=== PATIENT | male | born 1935 | race Caucasian/White ===

== ENCOUNTER 2017-08-23 18:50 | Inpatient (IN) | payer BC, OTHER ==
--- NOTE | 2017-08-23 19:50 | PDOC ---
Attending Attestation - Resident Resident Name: Flaca Malone - ED Attending Attestation I have performed the following: I have examined & evaluated the patient, The case was reviewed & discussed with the resident, I agree w/resident's findings & plan - HPI HPI: 08/23/17 23:57 Pt was sweeping the steps of his front porch and fell and injured his right face when he fell. He went to [facility] ER with the syncope and he had head CT was worked up and released. He went home and had another syncopal episode, and he came here. CT head and facial bones normal; Right hip and femur normal, and labs normal. Pt is on coumadin and his INR is 4.0 - Physicial Exam PE: 08/24/17 00:02 Neuro exam is normal; Pt is A+Ox3; Agree with resident exam. - Medical Decision Making 08/23/17 23:32 Patient Name: RAJEEV ARNOLD THIS IS A PRELIMINARY REPORT FROM [facility]AGING PHYSICAL MEDICINE PHYSICIAN DATE OF SERVICE: 2017-08-23 21:12:45 IMAGES: [id number] EXAM: CT MAXILLOFACIAL HISTORY: Right-sided raccoon eye COMPARISON: None. FINDINGS: Negative for orbital or facial fracture. Globes and orbits are intact. THIS DOCUMENT HAS BEEN ELECTRONICALLY SIGNED 08/23/17 23:32 Patient Name: RAJEEV ARNOLD THIS IS A PRELIMINARY REPORT FROM [facility]YSICAL MEDICINE PHYSICIAN DATE OF SERVICE: 2017-08-23 21:09:24 IMAGES: 134 EXAM: CT HEAD HISTORY: Syncope COMPARISON: None. FINDINGS: Age-appropriate involutional changes. No hemorrhage. No mass. No detectable acute infarct. Mild chronic microvascular changes in the cerebral white matter. Osseous structures are intact. THIS DOCUMENT HAS BEEN ELECTRONICALLY SIGNED 08/23/17 23:33 Pt has an elevated INR 4.1. Pt will be admitted to Dr. Sepulveda for syncope. Hip and Femur XRAYs are normal 08/24/17 00:05 Pt will be admitted to tele to Dr. Sepulveda 08/24/17 07:06 Pt was found at bedside on ground. We decided to do a CTA to eval brain: Patient Name: RAJEEV ARNOLD THIS IS A PRELIMINARY REPORT FROM [facility] PHYSICAL MEDICINE PHYSICIAN DATE OF SERVICE: 2017-08-24 03:33:34 IMAGES: [id number] EXAM: CT BRAIN WITHOUT CONTRAST AND CTA HEAD HISTORY: Rule out aneurysm or CVA COMPARISON: CT brain dated 08/23/18 FINDINGS: CT brain:The ventricular system is midline and nondilated. The sulcal pattern is normal for the patient's age. The mild chronic small vessel ischemic changes. There is no bleed, mass, extra-axial fluid collection or mass effect. No skull fracture or skull lesion is identified. The visualized paranasal sinuses and mastoid air cells are clear. CT angiogram brain: The right left anterior, middle and posterior cerebral arteries are normal without clot, occlusion, high-grade stenosis or discrete aneurysm formation. There is a partial origin of the left posterior cerebral artery. The distal right and left cerebral arteries are normal. The distal internal carotid ovaries are normal. There are no areas of abnormally increased or decreased enhancement are IMPRESSION: No acute intracranial pathology. Normal CTA of the brain THIS DOCUMENT HAS BEEN ELECTRONICALLY SIGNED
[2017-08-23] MEDS ORDERED: SODIUM CHLORIDE 0.9% 500 ML INFUS.BAG IV ONE (19:57)
--- NOTE | 2017-08-23 20:09 | PDOC ---
History of Present Illness - General Chief Complaint: Syncope/Near Syncope Stated Complaint: SYNCOPE Time Seen by Provider: 08/23/17 19:21 History Source: Patient Exam Limitations: No Limitations - History of Present Illness Initial Comments: This is an 82 YOM with h/o A-fib and TIA (on coumadin and ASA 81mg daily) who is BIBA for syncope with fall from chair, after previously being seen at [facility] ED for a syncopal episode with GLF earlier this afternoon. He describes the first episode today: he was sweeping the stairs outside his house when he became dizzy and the next thing he remembers is waking up on the ground. He awoke with a right black eye and right distal thigh pain which were both new, and was seen at [facility] ED where he had a head CT, an EKG, and blood work. He notes that everything was normal except for his INR which was about 3.4. He was discharged home and was walking up the stairs just after returning to his home when he became dizzy (room spinning) and SOB, sat down in a chair, and the next thing he remembers is waking up on the floor in his home. 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 He notes some recent increased fatigue and non-productive cough for the past week or two, but no current or recent numbness, tingling, focal weakness, headache, vision changes, hearing changes, trouble walking/talking/swallowing/thinking, palpitations, chest pain, abdominal pain, nausea, vomiting, diarrhea, constipation, fever, chills, or other symptoms. The only dizziness or SOB he has experienced recently was fleeting during todays episodes, and he has none currently. Past History - Past Medical History Allergies/Adverse Reactions: Allergies Allergy/AdvReac Type Severity Reaction Status Date / Time No Known Allergies Allergy Verified 08/23/17 19:20 Home Medications: Ambulatory Orders Lansoprazole [Prevacid] 30 mg PO DAILY 08/23/17 Ramipril [Altace] 5 mg PO DAILY 08/23/17 Sotalol HCl [Sotalol] 80 mg PO DAILY 08/23/17 Warfarin Sodium [Coumadin] 2.5 mg PO DAILY 08/23/17 Cardiac Disorders: Yes (afib) COPD: No HTN: Yes - Immunization History Td Vaccination: Yes Immunization Up to Date: Yes - Suicide/Smoking/Psychosocial Hx Smoking History: Never smoked Have you smoked in the past 12 months: No Information on smoking cessation initiated: No Hx Alcohol Use: No Drug/Substance Use Hx: No Substance Use Type: None Review of Systems - Review of Systems Constitutional: Yes: Other (tiredness). No: Chills, Fever, Unexplained wgt Loss HEENTM: No: Nose Congestion, Throat Pain Respiratory: Yes: Cough, Shortness of Breath (resolved) Cardiac (ROS): No: Chest Pain, Palpitations ABD/GI: No: Constipated, Diarrhea, Nausea, Vomiting : No: Burning, Dysuria Musculoskeletal: Yes: Other (right thigh pain). No: Back Pain, Neck Pain Integumentary: No: Bruising, Rash Neurological: Yes: Dizziness (resolved). No: Headache, Numbness, Tingling, Weakness Endocrine: No: Unexplained Weight Gain, Unexplained Weight Loss *Physical Exam - Vital Signs Last Vital Signs Temp Pulse Resp BP Pulse Ox 97.3 F L 74 18 115/74 96 08/23/17 19:16 08/23/17 19:16 08/23/17 19:16 08/23/17 19:16 08/23/17 19:16 - Physical Exam General Appearance: Yes: Nourished, Appropriately Dressed, Other (very pleasant elderly male accompanied at bedside by supportive , head wrapped in kerlix, large obvious right raccoon eye, answering questions and conversing appropriately). No: Apparent Distress HEENT: positive: EOMI, YULIANA, Normal Voice, Hearing Grossly Normal, Other (right raccoon eye, no mcintosh sign, no nasal septal hematoma, no obvious CSF rhinorrhea or otorrhea left TM without hemotympanum, right TM not visualized d/ t cerumen impaction). negative: Scleral Icterus (R), Scleral Icterus (L), Nasal Congestion Neck: positive: Trachea midline, Supple. negative: Tender, Rigid Respiratory/Chest: positive: Lungs Clear, Normal Breath Sounds. negative: Respiratory Distress, Crackles, Rhonchi, Stridor, Wheezing Cardiovascular: positive: Regular Rhythm, Regular Rate. negative: Edema, Murmur Gastrointestinal/Abdominal: positive: Normal Bowel Sounds, Soft. negative: Tender, Organomegaly, Pulsatile Mass, Guarding Musculoskeletal: positive: Normal Inspection. negative: Decreased Range of Motion, Vertebral Tenderness Extremity: positive: Normal Capillary Refill, Normal Inspection, Normal Range of Motion, Other (right lateral distal thigh tenderness extending to just superior to the right lateral knee). negative: Tender, Cyanosis Integumentary: positive: Normal Color, Dry, Warm, Other (scattered abrasions and superficial skin avulsions to right forehead and right amish). 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 negative: Numbness, Confused, Disoriented ED Treatment Course - LABORATORY CBC & Chemistry Diagram: 08/23/17 20:26 08/23/17 20:26 - ADDITIONAL ORDERS Additional order review: Laboratory Results 08/23/17 08/23/17 08/23/17 21:00 20:26 20:26 PT with INR 46.30 H INR 4.10 H* PTT (Actin FS) 50.4 H Sodium Potassium Chloride Carbon Dioxide Anion Gap BUN Creatinine Creat Clearance w eGFR Random Glucose Calcium Total Bilirubin AST ALT Alkaline Phosphatase Creatine Kinase Troponin I B-Natriuretic Peptide 433.46 Total Protein Albumin TSH 0.70 08/23/17 20:26 PT with INR INR PTT (Actin FS) Sodium 139 Potassium 4.3 Chloride 107 Carbon Dioxide 24 Anion Gap 8 BUN 17 Creatinine 0.8 Creat Clearance w eGFR > 60 Random Glucose 124 H Calcium 8.2 L Total Bilirubin 0.5 AST 28 ALT 28 Alkaline Phosphatase 69 Creatine Kinase 129 Troponin I < 0.02 B-Natriuretic Peptide Total Protein 6.6 Albumin 3.6 TSH 08/23/17 20:26 RBC 4.59 MCV 80.9 MCHC 32.5 RDW 17.0 H MPV 9.8 Neutrophils % 78.2 Lymphocytes % 11.6 Monocytes % 8.4 Eosinophils % 1.1 Basophils % 0.7 - Medications Given in the ED: ED Medications Discontinued Medications Generic Name Dose Route Start Last Admin Trade Name Freq PRN Reason Stop Dose Admin Meclizine HCl 50 mg 08/24/17 00:49 08/24/17 00:55 Antivert - PO 08/24/17 00:50 Not Given ONCE ONE Sodium Chloride 500 ml 08/23/17 19:57 08/23/17 20:31 Normal Saline - IV 08/23/17 19:58 500 ml ONCE ONE Administration Medical Decision Making - Medical Decision Making 82 YOM with h/o A-fib and TIA on coumadin and ASA, who p/w two syncopal episodes today. Large right raccoon eye, right [id number] dysmetria, right forehead and amish abrasions/avulsions. VS within normal limits initially but on the monitor he is observed to dip to low 50s on HR. DDX IBNLT critical aortic stenosis, arrhythmia (i.e. high degree AV block), CVA/ TIA, orthostasis, ACS, UTI, PNA, PE, etc. Ordered is CBCD, CMP, PT/INR, cardiac panel, EKG, CXR, UA cx, CT head/facial bones. 08/23/17 20:57 INR is 4.10, WBC is 12.7. Negative head, facial bone, and chest CT's, negative femur XR. Patient is admitted to Dr. Sepulveda (PCP) who requests Dr. Medina for neuro consultation. 08/24/17 03:04 Patient found on the floor in Holding room by electronics repair technician. Incident report being completed for fall within the department. Patient himself denies having fallen and states that he was urinating when he became dizzy. States he was only leaning against the bed and adamantly denies having fallen or even being on floor. Patient states the dizziness he was experiencing just now is the same as the two syncopal episodes today. Head CTA ordered (Head CT is required by incident report protocol, so CTA protocol is added). Page is sent to neuro on-call to notify them of continued dizziness, concern for CVA. *DC/Admit/Observation/Transfer Diagnosis at time of Disposition: Supratherapeutic INR Syncope Qualifiers: Syncope type: unspecified Qualified Code(s): R55 - Syncope and collapse Head injury due to trauma Qualifiers: Encounter type: initial encounter Qualified Code(s): S09.90XA - Unspecified injury of head, initial encounter - Discharge Dispostion Condition at time of disposition: Guarded Admit: Yes - Referrals - Patient Instructions - Post Discharge Activity
[2017-08-23 20:33] LABS: BASOPHIL 0.7 % (0-2.0); EOSINOPHIL 1.1 % (0-4.5); MCH 26.3 pg (25.7-33.7); MCHC 32.5 g/dl (32.0-35.9); MEAN CELL VOLUME 80.9 fl (80-96); MEAN PLT VOLUME 9.8 fl (7.5-11.1); NEUTROPHILS 78.2 % (42.8-82.8); PLATELET COUNT 210 K/MM3 (134-434); WHITE BLOOD COUNT 12.7 K/mm3 (4.0-10.0)
[2017-08-23 20:49] LABS: PROTHROMBIN TIME (PATIENT) 46.3 SEC (9.98-11.88)
[2017-08-23 20:55] LABS: INR 4.1 (0.82-1.09)
[2017-08-23 20:59] LABS: ALBUMIN 3.6 g/dl (3.4-5.0); ANION GAP 8 (8-16); BILIRUBIN,TOTAL 0.5 mg/dL (0.2-1.0); CALCIUM 8.2 mg/dL (8.5-10.1); CO2 24 mmol/L (21-32); CPK 129 IU/L (39-308); CREATININE 0.8 mg/dL (0.7-1.3); GLUCOSE,RANDOM 124 mg/dL (74-106); SGOT/AST 28 U/L (15-37); SGPT/ALT 28 U/L (12-78); TOT PROT 6.6 g/dl (6.4-8.2)
[2017-08-23 21:01] LABS: ALK PHOS 69 U/L (45-117); TROPONIN I < 0.02 ng/ml (0.00-0.05)
[2017-08-23 21:31] LABS: THYROID STIMULATING HORMONE 0.7 uIU/ml (0.358-3.74)
[2017-08-24] MEDS ORDERED: MECLIZINE HCL 25 MG TABLET (FP) PO ONE (00:49)
[2017-08-24] MEDS ORDERED: MECLIZINE HCL 25 MG TABLET (FP) ONE (00:51)
--- NOTE | 2017-08-24 09:56 | CON.NEURO ---
Consult - History of Present Illness History of Present Illness: 82 YOM with h/o A-fib and TIA (on coumadin and ASA 81mg daily) who is BIBA for syncope with fall from chair, after previously being seen at [facility] ED for a syncopal episode. He describes the first episode on 08/23/17 - he was sweeping the stairs outside his house when he became dizzy and the next thing he remembers is waking up on the ground. He awoke with a right black eye and right distal thigh pain which were both new, and was seen at [facility] ED where he had a head CT, an EKG, and blood work. He notes that everything was normal except for his INR which was about 3.4. He was discharged home and was walking up the stairs just after returning to his home when he became dizzy ( room spinning) and SOB, sat down in a chair, and the next thing he remembers is waking up on the floor in his home. present for this event--no twtitching, BB incontinence or tongue biting. 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 INR here 4.10. feels ever since his TIA 12/12--'not right" . no HX of seizures. another event of dizziness while in ER- CT HD and CTA (-) [id number] CT/BRAIN CTA Rule out aneurysm. History of stroke. Patient fell again. CT angiogram scan of the brain without intravenous contrast followed with a CT angiogram of the brain Coronal and sagittal reformatted images were submitted. The precontrast examination, there remains mild to moderate volume loss, ventricular dilatation and periventricular chronic microvascular ischemic changes. No mass lesion, gross acute infarct or intracranial hemorrhage are identified. The calvarium is intact. Faint calcification of the cavernous carotid arteries are present. Mild deviation of the nasal septum to the right. Visualized paranasal sinuses and mastoid air cells are well aerated. A post intravenous CT angiogram of the brain was performed. In the posterior circulation, the distal vertebral arteries, vertebrobasilar junction, basilar artery and its bifurcation appear unremarkable . Both posterior and superior cerebellar arteries appear unremarkable. A left posterior communicating artery is present. Tortuous/looping at the junction of the right anterior cerebral artery and anterior communicating artery. In the anterior circulation, the distal internal carotid artery and its bifurcation appears unremarkable, bilaterally without evidence of focal stenosis or an aneurysm. IMPRESSION: No gross focal stenosis, aneurysm, major artery cutoff or vascular malformation is seen in the central intracranial arterial circulation. A preliminary report was forwarded by the [employer] service, - History Source History Provided By: Patient, Medical Record - Alcohol/Substance Use Hx Alcohol Use: No - Smoking History Smoking history: Never smoked Have you smoked in the past 12 months: No Home Medications - Allergies Allergies/Adverse Reactions: Allergies Allergy/AdvReac Type Severity Reaction Status Date / Time No Known Allergies Allergy Verified 08/23/17 19:20 - Home Medications Home Medications: Ambulatory Orders Lansoprazole [Prevacid] 30 mg PO DAILY 08/23/17 Ramipril [Altace] 5 mg PO DAILY 08/23/17 Sotalol HCl [Sotalol] 80 mg PO DAILY 08/23/17 Warfarin Sodium [Coumadin] 2.5 mg PO DAILY 08/23/17 Physical Exam-Neuro Vital Signs: Vital Signs Temperature 98.3 F 08/24/17 08:31 Pulse Rate 78 08/24/17 08:31 Respiratory Rate 18 08/24/17 08:31 Blood Pressure 110/71 08/24/17 08:31 O2 Sat by Pulse Oximetry (%) 98 08/24/17 08:31 Labs: CBC, BMP 08/23/17 20:26 08/23/17 20:26 INR, PTT INR 4.10 (0.82-1.09) H* 08/23/17 20:26 Imaging - Results Cat Scan: Report Reviewed, Image Reviewed Problem List - Problems (1) Head injury due to trauma Code(s): S09.90XA - UNSPECIFIED INJURY OF HEAD, INITIAL ENCOUNTER Qualifiers: Encounter type: initial encounter Qualified Code(s): S09.90XA - Unspecified injury of head, initial encounter (2) Syncope Code(s): R55 - SYNCOPE AND COLLAPSE Qualifiers: Syncope type: unspecified Qualified Code(s): R55 - Syncope and collapse Assessment/Plan 82 YOM with h/o A-fib and TIA (on coumadin and ASA 81mg daily) who is BIBA for recurrent syncope --no twitching, BB incontinence or tongue biting. CT HD and CTA (-) ; no clinical evidence for seizures; possibility of posterior circulation stroke, will get MRI BRAIN. can continue AC for now. cardiology FU , orthostatics etc PT consult to better decipher fall risk. Dr Mclean
--- NOTE | 2017-08-24 14:03 | EKG ---
Test Reason : Blood Pressure : / mmHG Vent. Rate : 078 BPM Atrial Rate : 078 BPM P-R Int : 182 ms QRS Dur : 072 ms QT Int : 434 ms P-R-T Axes : 045 007 054 degrees QTc Int : 494 ms NORMAL SINUS RHYTHM WHEN COMPARED WITH ECG OF 18-APR-1999 16:10, NO SIGNIFICANT CHANGE WAS FOUND Confirmed by NAJMA FERNANDEZ MD ([id number]) on 08/24/2017 2:02:34 PM Referred By: Confirmed By:NAJMA FERNANDEZ MD
[2017-08-24 18:50] VITALS: BMI 24.9
[2017-08-24] MEDS ORDERED: ACETAMINOPHEN 325 MG TABLET (FP) PO PRN (23:57)
[2017-08-25] MEDS: SOTALOL HCL 80 MG TABLET (FP) PO SCH ×3 (00:53→22:29)
[2017-08-25 07:30] LABS: INR 2.25 (0.82-1.09); PROTHROMBIN TIME (PATIENT) 25.4 SEC (9.98-11.88)
[2017-08-25 07:43] LABS: MCH 25.9 pg (25.7-33.7); MCHC 32.3 g/dl (32.0-35.9); MEAN CELL VOLUME 80.1 fl (80-96); PLATELET COUNT 219 K/MM3 (134-434); RDW 17.4 % (11.9-15.9)
[2017-08-25 07:52] LABS: ALBUMIN 3.6 g/dl (3.4-5.0); ANION GAP 7 (8-16); CALCIUM 8.7 mg/dL (8.5-10.1); CO2 28 mmol/L (21-32); GLUCOSE,RANDOM 113 mg/dL (74-106); SGOT/AST 34 U/L (15-37); SGPT/ALT 28 U/L (12-78)
[2017-08-25 07:54] LABS: ALK PHOS 61 U/L (45-117); BILIRUBIN,TOTAL 0.9 mg/dL (0.2-1.0); TOT PROT 6.2 g/dl (6.4-8.2)
[2017-08-25] MEDS ORDERED: RAMIPRIL 5 MG CAPSULE (FP) PO SCH (10:00)
[2017-08-25] MEDS: PANTOPRAZOLE 40 MG TABLET (FP) PO SCH (10:26)
--- NOTE | 2017-08-25 10:51 | HP ---
DATE OF ADMISSION: DATE OF DICTATION: 08/25/2017 HISTORY OF PRESENT ILLNESS: This is an 82-year-old male known to me for many years known to have atrial fibrillation who had a syncopal episode and was seen in [facility], came back. 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 CT scan of the head, EKG, other workup was negative. Yesterday after coming to the emergency room, patient had another dizziness. Evaluated by Neurology. Advised to continue same medication. There was no clinical evidence of seizure. Possibility of posterior circulation stroke. Advised MRI. Advised to continue anticoagulation. PHYSICAL EXAMINATION: General: On examination, patient is awake, alert, oriented, not in distress. HEENT: On the scalp forehead, there is injuries which are sutured, skin injuries superficially. Eyes PERRLA. Neck: Supple. Lungs: Clear. Heart: S1, S2 normal. No S3, S4. Abdomen: Soft. Extremities: Legs no edema. No other hematomas are seen. Neurologic: Intact. DIAGNOSTIC DATA: EKG showed atrial fibrillation. CT scan of the head showed no gross focal stenosis aneurysm. CT scan of the chest was done, mild chronic lung disease, bibasilar atelectasis. Hip x-ray, to be evaluated. FINAL DIAGNOSIS: Syncope, atrial fibrillation, scalp lacerations. PLAN: Neurology followup, Cardiology consult. SABIHA MEIER M.D. [id number]
--- NOTE | 2017-08-25 16:38 | CONS ---
DATE OF CONSULTATION: 08/25/[address] Sepulveda. CARDIOLOGY CONSULTATION CHIEF COMPLAINTS: 1. Sudden loss of consciousness. 2. An 82-year-old white gentleman, with long-standing history of hypertension, paroxysmal atrial fibrillation, history of TIA/?cerebrovascular accident, hypercholesterolemia, was admitted to the hospital with history of sudden loss of consciousness. The patient states that he was sweeping the stairs outside his house and suddenly found himself on the ground injuring the right side of his forehead and face and also the right thigh. He was taken to [facility], was admitted overnight, and later discharged. He came home and was climbing up to the second floor and suddenly felt lightheaded. He immediately went into his room, tried to sit on a table, and then found himself on the floor. In view of his second episode, he decided to come to [facility] and was hospitalized. On questioning, the patient states that back in October of this year, he was in [place]. Was at a filling station. Got out of the car, and, as he was walking, he found himself on the floor. There were no injuries, at this time. The patient on questioning does give history of intermittent lightheadedness especially when he is standing. There is no history of palpitations, no history of seizures. No history of vertigo. There is no history of exertional chest, arm, back, jaw pain or discomfort. No history of dyspnea, except when he came around after the second episode he felt dyspneic. No history of diabetes mellitus. The patient states that he previously had "stroke" involving just the left upper extremity and was able to gain strength over time. PAST HISTORY: 1. As mentioned in the history of present illness. 2. History of carcinoma of the prostate. 3. History of carpal tunnel syndrome. SURGICAL HISTORY: 1. Status post tonsillitis. 2. 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 3. Surgery for left carpal tunnel syndrome. SOCIAL HISTORY: The patient is retired. He is . Has two daughters who are healthy. He smoked for 1 to 2 years during his teenage years. During his younger days, he says, he drank heavily (beer). Has 2 cups of coffee. FAMILY HISTORY: Father in his 80s related to a stroke; he had a pacemaker. Mother also in her 80s; had coronary artery disease, angina pectoris. He had 2 brothers and 3 sisters. Both brothers had coronary artery disease. Two of his sisters had coronary artery disease. His twin sister apparently is healthy. ALLERGIES: None reported. MEDICATION: Prior to admission, he was on: 1. Pravastatin 40 mg p.o. daily. 2. Ramipril of 5 mg p.o. daily. 3. Sotalol of 80 mg p.o. daily. 4. Warfarin 2.5 mg p.o. daily. Current medications are as follows: 1. Tylenol of 650 mg p.o. q.8 h. p.r.n. 2. Ramipril of 5 mg p.o. daily. 3. Sotalol of 80 mg p.o. b.i.d. 4. Atorvastatin 10 mg p.o. daily. 5. Protonix 40 mg p.o. daily. REVIEW OF SYSTEMS: Constitutional: No history of chills, fever or night sweats. No history of unintentional weight loss. HEENT: History of occasional right-sided occipital headaches. No history of diplopia or blurred vision. No history of epistaxis, hoarseness, tinnitus, or deafness reported. Cardiovascular system: See history of present illness. Respiratory system: Episode of dyspnea, following recent loss of consciousness. No history of cough, expectoration, or hemoptysis. No history of tuberculosis. Gastrointestinal system: No history of nausea, vomiting, melena, or hematemesis. No history of abdominal pain or discomfort. No history of change in bowel habits. Central nervous system: See history of present illness. History of intermittent unsteadiness of gait while walking. Endocrine: No history of polyuria or polydipsia. No history of intolerance to cold or warm weather. Genitourinary system: History of prostatic carcinoma. History of nocturia and intermittent hematuria. Musculoskeletal System: Denies having arthralgias or myalgias. He does complain of pain involving the right thigh. Hematological System: No history of anemia, ecchymosis or bleeding. EXAMINATION: General: An 82-year-old, alert gentleman who was in no acute distress. No pallor, cyanosis, clubbing or jaundice. Vital signs: Blood pressure 100/60 mmHg in the right upper extremity. Did not record blood pressure in the left upper extremity because of an IV line in the antecubital fossa. Blood pressure on standing was 80 mmHg systolic and patient complained of lightheadedness and had to be put back into bed. Neck: Supple. No jugular venous distention. Right carotid was 2+, left was 1+. There was a right carotid bruit heard on held expiration. No thyromegaly was present. Heart: PMI was in the 5th intercostal space. No heaves or thrills. S1 and S2 were normal. No murmur or gallops were heard. Lungs: Clear on auscultation. Abdomen: Soft, protuberant, and nontender. No hepatosplenomegaly or palpable masses were felt. Bowel sounds were present. No bruits were heard. Extremities: No calf tenderness or dependent edema. Femoral pulses were 2+, dorsalis pedis pulses were 2+, posterior tibial pulses could not be palpated. There was swelling, ecchymosis and tenderness over the right thigh. LABORATORY DATA: August 23, 2017: WBC count 12,700, hemoglobin 12.1 grams, platelet count 210,000. CBC, on August 25, 2017: WBC count 13,000, hemoglobin has dropped to 9.8 g/dL, platelet count was 219,000; differential was normal. Chemistry, August 25, 2017: Sodium 142, potassium 4.2, chloride 107, CO2 of 28, BUN 26, creatinine 1.0, glucose 113 mg/dL. BNP was 433.46, total CK was 129, troponin was less than 0.2. TSH was 0.17. INR on August 23 was 4.10 and on August 25 is 2.25. CTA impression: No gross focal stenosis, aneurysm, major arterial cutoff, or vascular malformation is seen in the central intracranial arterial circulation. Chest CT impression: Mild chronic lung disease, and bibasilar atelectasis, no acute pathology within the chest. Also, reported to have nonobstructive right renal calculi, multiple right renal cysts, and mild prominence of the right renal pelvis. ECG, August 23, 2017: Normal sinus rhythm, slow R-wave progression V1 to V3, nonspecific ST changes. No previous ECG was available for comparison. IMPRESSION: 1. Recurring syncope, etiology to be determined: a. Secondary to postural hypertension. b. Vasodepressive syncope. c. Carotid artery disease. 2. Right carotid artery bruit. 3. History of paroxysmal atrial fibrillation. 4. Anemia. Most likely related to hematoma involving the right thigh, as there has been a drop in hematocrit from 12.1 to 9.8 g/dL. 5. History of hypertension. 6. Hypercholesterolemia. 7. Gastroesophageal reflux disease. RECOMMENDATIONS: 1. Close followup of hematocrit, as there may be ongoing bleeding into his right thigh. 2. Ultrasound of the right thigh to determine the size of hematoma. 3. Ultrasound of the carotid arteries. 4. Check blood pressure supine and standing. 5. Temporarily discontinue ramipril. 6. If necessary, sotalol dose could be decreased to 40 mg p.o. b.i.d. 7. Fluid replacement. 8. Further suggestions depending on the results of the above-mentioned tests. PROGNOSIS: Guarded. Thank you for your referral. Jose [id number]
[2017-08-25 18:16] LABS: MCH 26.5 pg (25.7-33.7); MCHC 32.9 g/dl (32.0-35.9); MEAN CELL VOLUME 80.5 fl (80-96); MEAN PLT VOLUME 10.3 fl (7.5-11.1); PLATELET COUNT 225 K/MM3 (134-434); RDW 17.3 % (11.9-15.9); WHITE BLOOD COUNT 11.7 K/mm3 (4.0-10.0)
[2017-08-25] MEDS: ATORVASTATIN CA 10 MG TABLET (FP) PO SCH (22:32)
--- NOTE | 2017-08-26 07:35 | PN ---
Progress Note (short form) - Note Progress Note: 82 YOM with h/o A-fib and TIA (on coumadin and ASA 81mg daily) who is BIBA for recurrent syncope --no twitching, BB incontinence or tongue biting. CT HD and CTA (-) ; no clinical evidence for seizures; possibility of posterior circulation stroke, will get MRI BRAIN. Carotid Ultrasound-Right ICA 50/69% stenosis due to plaque. -Pt. reports he is feeling better, that his gait has improved. -O/E- Alert, well-orientedold right central facial droop. 5/5 strength in all 4 extremities A&P: Pt. with syncope, likely cardiac in origin, less likely due to compromise of [place] intraarterial pressure.Right carotid with non-critical stenosis -would follow with ultrasound every 6 months. Await MRI brain, can cont. a/c for now. Thank you, Karo Colón MD.
[2017-08-26 07:52] LABS: MCH 26.4 pg (25.7-33.7); MEAN PLT VOLUME 9.7 fl (7.5-11.1); PLATELET COUNT 192 K/MM3 (134-434); RDW 17.1 % (11.9-15.9); WHITE BLOOD COUNT 9.6 K/mm3 (4.0-10.0)
[2017-08-26 08:05] LABS: INR 1.89 (0.82-1.09); PROTHROMBIN TIME (PATIENT) 21.4 SEC (9.98-11.88)
--- NOTE | 2017-08-26 09:20 | PN ---
Progress Note, Physician Chief Complaint: Feels OK History of Present Illness: Dr Manuel cardiology consult appreciated - Current Medication List Current Medications: Active Medications Acetaminophen (Tylenol -) 650 mg PO Q8H PRN PRN Reason: FEVER OR PAIN Atorvastatin Calcium (Lipitor -) 10 mg PO HS [facility] Last Admin: 08/25/17 22:32 Dose: Not Given Pantoprazole Sodium (Protonix -) 40 mg PO DAILY [facility] Last Admin: 08/25/17 10:26 Dose: 40 mg Sotalol HCl (Betapace -) 80 mg PO BID [facility] Last Admin: 08/25/17 22:29 Dose: 80 mg Warfarin Sodium (Coumadin -) 2 mg PO DAILY@1800 [facility] - Objective Vital Signs: Vital Signs Temperature 98.2 F 08/26/17 07:01 Pulse Rate 79 08/26/17 07:00 Respiratory Rate 18 08/25/17 20:55 Blood Pressure 101/69 08/26/17 07:00 O2 Sat by Pulse Oximetry (%) 96 08/25/17 22:15 Constitutional: Yes: No Distress Eyes: Yes: WNL Neck: Yes: Supple Cardiovascular: Yes: Pulse Irregular Respiratory: Yes: Regular Gastrointestinal: Yes: WNL ...Rectal Exam: Yes: Deferred Genitourinary: Yes: Bladder Distention Breast(s): Yes: WNL Musculoskeletal: Yes: Muscle Pain Extremities: Yes: Other (Rt thigh hematoma present) Edema: No Neurological: Yes: Alert Labs: CBC, BMP 08/26/17 06:00 08/25/17 06:50 INR, PTT INR 1.89 (0.82-1.09) H 08/26/17 06:00 - ....Imaging Ultrasound: Report Reviewed MRI: Pending Assessment/Plan Drop in Hb /Hct noted probably due to Rt thigh hematoma Coumadin on hold
[2017-08-26] MEDS: SOTALOL HCL 80 MG TABLET (FP) PO SCH ×2 (09:57→21:02)
[2017-08-26] MEDS: PANTOPRAZOLE 40 MG TABLET (FP) PO SCH (09:57)
[2017-08-26] MEDS ORDERED: WARFARIN NA 2 MG TABLET (UD) PO ONE (12:45)
--- NOTE | 2017-08-26 12:54 | EKG ---
Test Reason : Blood Pressure : / mmHG Vent. Rate : 135 BPM Atrial Rate : 153 BPM P-R Int : 000 ms QRS Dur : 084 ms QT Int : 344 ms P-R-T Axes : 000 034 078 degrees QTc Int : 516 ms ATRIAL FIBRILLATION WITH RAPID VENTRICULAR RESPONSE ABNORMAL ECG WHEN COMPARED WITH ECG OF 23-AUG-2017 22:22, ATRIAL FIBRILLATION HAS REPLACED SINUS RHYTHM VENT. RATE HAS INCREASED BY 57 BPM CRITERIA FOR ANTERIOR INFARCT ARE NO LONGER PRESENT NONSPECIFIC T WAVE ABNORMALITY NOW EVIDENT IN LATERAL LEADS Confirmed by TREY GALO MD ([id number]) on 08/26/2017 12:53:37 PM Referred By: Lady ESTRADA Confirmed By:TREY GALO MD
[2017-08-26] MEDS ORDERED: DIGOXIN 0.5 MG/2 ML AMPUL IVPUSH ONE (18:00)
[2017-08-26] MEDS ORDERED: DIGOXIN 0.5 MG/2 ML AMPUL ONE (18:08)
--- NOTE | 2017-08-26 19:10 | PN ---
Progress Note (short form) - Note Progress Note: 82 year old male transferred to telemetry because of paroxymsal atrial fibrillation with rapid ventricular response. Admitted with recurring syncope and facial injuries and right thigh hematoma. No further syncope, denies palpitation, chest pain or discomfort, no SOB reported. Workup disclosed a moderate to large right thigh hematoma, nonobstructive right carotid disease and MRI revealed white matter reveals a nonhemorrhagic infarct. HCT is stable. Active Medications Acetaminophen (Tylenol -) 650 mg PO Q8H PRN PRN Reason: FEVER OR PAIN Atorvastatin Calcium (Lipitor -) 10 mg PO HS [facility] Last Admin: 08/25/17 22:32 Dose: Not Given Digoxin (Lanoxin -) 0.25 mg PO ONCE ONE Stop: 08/27/17 00:01 Pantoprazole Sodium (Protonix -) 40 mg PO DAILY [facility] Last Admin: 08/26/17 09:57 Dose: 40 mg Sotalol HCl (Betapace -) 80 mg PO BID [facility] Last Admin: 08/26/17 09:57 Dose: 80 mg Warfarin Sodium (Coumadin -) 2 mg PO DAILY@1800 [facility] 82 old male in no acute distress, no pallor, cyanosis, clubbng or jaundice. Last Vital Signs Temp Pulse Resp BP Pulse Ox 97.8 F 144 H. Irregular 18 127/58 96 08/26/17 16:31 08/26/17 18:24 08/26/17 16:31 08/26/17 16:31 08/26/17 09:00 NECK: Supple, no JVD, carotids RT.2+, LT. 1+ RT carotid 2+, right bruit. HEART: irregular S1 variable S2 normal, no murmur heard , on gallops. LUNGS: Clear. ABDOMEN: Soft, nontender or pal, no organomegaly or palpable masses EXTREMITIES: No calf tenderness, right thigh hematoma. CBC, BMP 08/26/17 06:00 08/25/17 06:50 A: 1. New onset atrial fib. with rapid ventricular response. 2. Recurring syncope, etiology to be determined: a). Postural hypotension. b). Arrthymias. c). Cerebrovascular event. 3. Hypertension. 4. Anemia related to traumatic acute blood loss. RECOMMENDATIOS: 1. Control of heart rate with digoxin. 2. Dose of sotslol may need to be increased. 3. Close f/u of INR and HCT. 4. Coumadin was resumed in the presence of vAtrial fib.
--- NOTE | 2017-08-26 19:21 | PN ---
Progress Note (short form) - Note Progress Note: 82 YOM with h/o A-fib and TIA (on coumadin and ASA 81mg daily) who is BIBA for recurrent syncope --no twitching, BB incontinence or tongue biting. CT HD and CTA (-) ; no clinical evidence for seizures; possibility of posterior circulation stroke, will get MRI BRAIN. Carotid Ultrasound-Right ICA 50-69% stenosis due to plaque. -Pt. reports he is feeling better, that his gait has improved. -O/E- Alert, well-orientedold right central facial droop. 5/5 strength in all 4 extremities MRI Brain with small subcentimeter deep right parietal periventricular infarct adjacent to the splenium of the corpus callosum. A&P:Th above small infarc is in the watershed distribution, likely a result of systemic hypotension(he has been noted by nursing to have orthostatic falls in his BP and fall in Hb. Noted to have paroxysmal afib, all these factors lead to intracranial hypotension. Would cont. coumadin given relatively high risk for cerebral embolii and the size of the infarct does not contraindicate anticoagulation. Thank you, Karo Colón MD.
[2017-08-26] MEDS: ATORVASTATIN CA 10 MG TABLET (FP) PO SCH (21:02)
[2017-08-27] MEDS ORDERED: DIGOXIN 0.25 MG TABLET (FP) PO ONE
[2017-08-27 08:11] LABS: INR 1.98 (0.82-1.09); PROTHROMBIN TIME (PATIENT) 22.4 SEC (9.98-11.88)
--- NOTE | 2017-08-27 09:32 | PN ---
Progress Note, Physician Chief Complaint: feels tired History of Present Illness: Admitted with multiple falls MRI showed infarct internal capsule area - Current Medication List Current Medications: Active Medications Acetaminophen (Tylenol -) 650 mg PO Q8H PRN PRN Reason: FEVER OR PAIN Atorvastatin Calcium (Lipitor -) 10 mg PO HS [facility] Last Admin: 08/26/17 21:02 Dose: 10 mg Pantoprazole Sodium (Protonix -) 40 mg PO DAILY [facility] Last Admin: 08/26/17 09:57 Dose: 40 mg Sotalol HCl (Betapace -) 80 mg PO BID [facility] Last Admin: 08/26/17 21:02 Dose: 80 mg Warfarin Sodium (Coumadin -) 2 mg PO DAILY@1800 [facility] - Objective Vital Signs: Vital Signs Temperature 98.2 F 08/27/17 09:00 Pulse Rate 93 H 08/27/17 09:00 Respiratory Rate 18 08/27/17 09:00 Blood Pressure 98/60 08/27/17 09:00 O2 Sat by Pulse Oximetry (%) 97 08/27/17 09:00 Constitutional: Yes: Mild Distress Eyes: Yes: WNL HENT: Yes: WNL Neck: Yes: Supple Cardiovascular: Yes: Pulse Irregular Respiratory: Yes: Regular ...Rectal Exam: Yes: Deferred Genitourinary: Yes: WNL Extremities: Yes: WNL, Other (thigh hematoma remains the same) Edema: No Neurological: Yes: Alert Labs: CBC, BMP 08/26/17 06:00 08/25/17 06:50 INR, PTT INR 1.98 (0.82-1.09) H 08/27/17 05:05 Assessment/Plan PT for ambulation
--- NOTE | 2017-08-27 09:33 | PN ---
Progress Note (short form) - Note Progress Note: HPI: 82 YOM with h/o A-fib and TIA (on coumadin and ASA 81mg daily) who is BIBA for syncope with fall from chair, after previously being seen at [facility] ED for a syncopal episode. He describes the first episode on 08/23/17 - he was sweeping the stairs outside his house when he became dizzy and the next thing he remembers is waking up on the ground. He awoke with a right black eye and right distal thigh pain which were both new, and was seen at [facility] ED where he had a head CT, an EKG, and blood work. He notes that everything was normal except for his INR which was about 3.4. He was discharged home and was walking up the stairs just after returning to his home when he became dizzy ( room spinning) and SOB, sat down in a chair, and the next thing he remembers is waking up on the floor in his home. present for this event--no twtitching, BB incontinence or tongue biting. He was able to stand up and walk after the episode [employer]. INR here 4.10. feels ever since his TIA 12/12--'not right" . no HX of seizures. CT HD and CTA (-) FU : feels weak and tired MRI reviewed small stroke, R splenium of CC--likely watershed [id number] CT/BRAIN CTA Rule out aneurysm. History of stroke. Patient fell again. CT angiogram scan of the brain without intravenous contrast followed with a CT angiogram of the brain Coronal and sagittal reformatted images were submitted. The precontrast examination, there remains mild to moderate volume loss, ventricular dilatation and periventricular chronic microvascular ischemic changes. No mass lesion, gross acute infarct or intracranial hemorrhage are identified. The calvarium is intact. Faint calcification of the cavernous carotid arteries are present. Mild deviation of the nasal septum to the right. Visualized paranasal sinuses and mastoid air cells are well aerated. A post intravenous CT angiogram of the brain was performed. In the posterior circulation, the distal vertebral arteries, vertebrobasilar junction, basilar artery and its bifurcation appear unremarkable . Both posterior and superior cerebellar arteries appear unremarkable. A left posterior communicating artery is present. Tortuous/looping at the junction of the right anterior cerebral artery and anterior communicating artery. In the anterior circulation, the distal internal carotid artery and its bifurcation appears unremarkable, bilaterally without evidence of focal stenosis or an aneurysm. IMPRESSION: No gross focal stenosis, aneurysm, major artery cutoff or vascular malformation is seen in the central intracranial arterial circulation. A preliminary report was forwarded by the [employer] service, - History Source History Provided By: Patient, Medical Record - Alcohol/Substance Use Hx Alcohol Use: No - Smoking History Smoking history: Never smoked Have you smoked in the past 12 months: No Home Medications - Allergies Allergies/Adverse Reactions: Allergies Allergy/AdvReac Type Severity Reaction Status Date / Time No Known Allergies Allergy Verified 08/23/17 19:20 - Home Medications Home Medications: Ambulatory Orders Lansoprazole [Prevacid] 30 mg PO DAILY 08/23/17 Ramipril [Altace] 5 mg PO DAILY 08/23/17 Sotalol HCl [Sotalol] 80 mg PO DAILY 08/23/17 Warfarin Sodium [Coumadin] 2.5 mg PO DAILY 08/23/17 Physical Exam-Neuro Vital Signs: Vital Signs Temperature 98.2 F 08/27/17 09:00 Pulse Rate 93 H 08/27/17 09:00 Respiratory Rate 18 08/27/17 09:00 Blood Pressure 98/60 08/27/17 09:00 O2 Sat by Pulse Oximetry (%) 97 08/27/17 09:00 Labs: CBCD WBC 9.6 K/mm3 (4.0-10.0) 08/26/17 06:00 RBC 3.43 M/mm3 (4.00-5.60) L 08/26/17 06:00 Hgb 9.1 GM/dL (11.7-16.9) L 08/26/17 06:00 Hct 27.4 % (35.4-49) L 08/26/17 06:00 MCV 80.0 fl (80-96) 08/26/17 06:00 MCHC 33.0 g/dl (32.0-35.9) 08/26/17 06:00 RDW 17.1 % (11.9-15.9) H 08/26/17 06:00 Plt Count 192 K/MM3 (134-434) 08/26/17 06:00 MPV 9.7 fl (7.5-11.1) 08/26/17 06:00 CMP Sodium 142 mmol/L (136-145) 08/25/17 06:50 Potassium 4.2 mmol/L (3.5-5.1) 08/25/17 06:50 Chloride 107 mmol/L (98-107) 08/25/17 06:50 Carbon Dioxide 28 mmol/L (21-32) 08/25/17 06:50 Anion Gap 7 (8-16) L 08/25/17 06:50 BUN 26 mg/dL (7-18) H D 08/25/17 06:50 Creatinine 1.0 mg/dL (0.7-1.3) D 08/25/17 06:50 Creat Clearance w eGFR > 60 (>60) 08/25/17 06:50 Calcium 8.7 mg/dL (8.5-10.1) 08/25/17 06:50 Total Bilirubin 0.9 mg/dL (0.2-1.0) D 08/25/17 06:50 AST 34 U/L (15-37) D 08/25/17 06:50 ALT 28 U/L (12-78) 08/25/17 06:50 Alkaline Phosphatase 61 U/L (45-117) 08/25/17 06:50 Total Protein 6.2 g/dl (6.4-8.2) L 08/25/17 06:50 Albumin 3.6 g/dl (3.4-5.0) 08/25/17 06:50 Imaging - Results Cat Scan: Report Reviewed, Image Reviewed Problem List - Problems (1) Head injury due to trauma Code(s): S09.90XA - UNSPECIFIED INJURY OF HEAD, INITIAL ENCOUNTER Qualifiers: Encounter type: initial encounter Qualified Code(s): S09.90XA - Unspecified injury of head, initial encounter (2) Syncope Code(s): R55 - SYNCOPE AND COLLAPSE Qualifiers: Syncope type: unspecified Qualified Code(s): R55 - Syncope and collapse Assessment/Plan 82 YOM with h/o A-fib and TIA (on coumadin and ASA 81mg daily) who is BIBA for recurrent syncope --no twitching, BB incontinence or tongue biting. CT HD and CTA (-) ; no clinical evidence for seizures; small watershed infarct R CC-- likely hypoperfusion. start fluids can continue AC for now. PT consult Dr Mclean Problem List - Problems (1) Head injury due to trauma Code(s): S09.90XA - UNSPECIFIED INJURY OF HEAD, INITIAL ENCOUNTER Qualifiers: Encounter type: initial encounter Qualified Code(s): S09.90XA - Unspecified injury of head, initial encounter (2) Syncope Code(s): R55 - SYNCOPE AND COLLAPSE Qualifiers: Syncope type: unspecified Qualified Code(s): R55 - Syncope and collapse
[2017-08-27] MEDS: DEXTROSE 5%-0.45% SALINE 1,000 ML IV SCH ×2 (10:55→21:13)
[2017-08-27] MEDS: SOTALOL HCL 80 MG TABLET (FP) PO SCH ×2 (10:56→21:12)
[2017-08-27] MEDS: PANTOPRAZOLE 40 MG TABLET (FP) PO SCH (10:56)
--- NOTE | 2017-08-27 13:19 | HOL ---
Hook-up date: 2017-08-25 15:04:00 Duration: 24:00:00 Test Indications: PAIN Medications: [id number] QRS complexes 23 Ventricular ectopics which represent <1 % of total QRS comp. 3 Supraventricular ectopics which represent <1 % of total QRS comp. * Paced QRS complexs which represent % of total QRS comp. * % of Time Classified as Noise VENTRICULAR ECTOPY 23 Isolated 0 Bigeminal Cycles 0 Couplets 0 Runs 0 Beats in Runs * Beats LONGEST at * BPM at :: -- * Beats FASTEST at * BPM at :: -- SUPRAVENTRICULAR ECTOPY 0 Isolated 0 Couplets 1 Runs 3 Beats in Runs 3 Beats LONGEST at 176 BPM at 10:05:04 2017-08-26 3 Beats FASTEST at 176 BPM at 10:05:04 2017-08-26 HEART RATES 48 MIN at 23:19:55 2017-08-25 91 AVG 196 MAX at 10:11:54 2017-08-26 LONGEST RR 1.048 secs at 06:04:56 2017-08-26 SCANNED BY RAYSA PARTIDA ON 08/27/17 1. Baseline sinus rhythm with avg hr 91 and range 48-196. 2. No significant bradycardia or pauses. 3. Rare pvcs and pacs. 4. Several brief atrial runs, likely PAT. 5. No vt, vf, afib, detected. 6. No diary submitted. Confirmed by MAGGIE CAPPS, LAURI ([id number]) on 08/27/2017 1:18:29 PM Referred By: RENEA LANDIS DR Overread By: LAURI SERRANO MD
[2017-08-27] MEDS: WARFARIN NA 2 MG TABLET (UD) PO SCH (17:55)
--- NOTE | 2017-08-27 19:08 | PN ---
Progress Note (short form) - Note Progress Note: 82 year old male transferred to telemetry because of paroxymsal atrial fibrillation with rapid ventricular response. Converted to sinus rhythm. Earlier in the morning had lightheaded and started on iv fluids and is feeling better. Active Medications Generic Name Dose Route Start Last Admin Trade Name Freq PRN Reason Stop Dose Admin Acetaminophen 650 mg 08/24/17 23:57 Tylenol - PO Q8H PRN FEVER OR PAIN Atorvastatin Calcium 10 mg 08/25/17 22:00 08/26/17 21:02 Lipitor - PO 10 mg HS [facility] Administration Dextrose/Sodium Chloride 1,000 mls @ 80 mls/hr 08/27/17 10:45 08/27/17 10:55 D5-1/2ns - IV 80 mls/hr ASDIR [facility] Administration Pantoprazole Sodium 40 mg 08/25/17 10:00 08/27/17 10:56 Protonix - PO 40 mg DAILY [facility] Administration Sotalol HCl 80 mg 08/25/17 01:00 08/27/17 10:56 Betapace - PO 80 mg BID [facility] Administration Warfarin Sodium 2 mg 08/26/17 18:00 08/27/17 17:55 Coumadin - PO 2 mg DAILY@1800 [facility] Administration 82 old male in no acute distress, no pallor, cyanosis, clubbng or jaundice. Last Vital Signs Temp Pulse Resp BP Pulse Ox 98.4 F 86 regular. 20 103/59 97 08/27/17 17:00 08/27/17 17:00 08/27/17 17:00 08/27/17 17:00 08/27/17 09:00 NECK: Supple, no JVD, carotids RT.2+, LT. 1+ RT carotid 2+, right bruit. HEART: irregular S1 variable S2 normal, no murmur heard, no gallops. LUNGS: Clear. ABDOMEN: Soft, nontender, no organomegaly or palpable masses EXTREMITIES: No calf tenderness, right thigh hematoma is soft and there is no tenderness. A: 1. New onset atrial fib. with rapid ventricular response. 2. Recurring syncope, etiology to be determined: a). Postural hypotension. b). Arrthymias. c). Cerebrovascular event. 3. Hypertension. 4. Anemia related to traumatic acute blood loss. RECOMMENDATIOS: 1. If atrial fib. recurs add 40mg. of sotalol at 2pm. 2. F/u CBC and BMP. 3. Increase ambulation.
[2017-08-27] MEDS ORDERED: WARFARIN NA 1 MG TABLET (FP) PO ONE (20:15)
[2017-08-27] MEDS: ATORVASTATIN CA 10 MG TABLET (FP) PO SCH (21:13)
[2017-08-28 07:00] LABS: MCH 26.4 pg (25.7-33.7); MCHC 32.5 g/dl (32.0-35.9); MEAN CELL VOLUME 81.4 fl (80-96); MEAN PLT VOLUME 10.7 fl (7.5-11.1); PLATELET COUNT 164 K/MM3 (134-434); RDW 17.2 % (11.9-15.9); WHITE BLOOD COUNT 9.1 K/mm3 (4.0-10.0)
[2017-08-28 07:08] LABS: ALBUMIN 2.8 g/dl (3.4-5.0); ANION GAP 4 (8-16); CALCIUM 7.3 mg/dL (8.5-10.1); CO2 27 mmol/L (21-32); CREATININE 0.7 mg/dL (0.7-1.3); GLUCOSE,RANDOM 105 mg/dL (74-106); SGOT/AST 25 U/L (15-37); SGPT/ALT 25 U/L (12-78); TOT PROT 5.5 g/dl (6.4-8.2)
[2017-08-28 07:09] LABS: ALK PHOS 61 U/L (45-117); BILIRUBIN,TOTAL 2.1 mg/dL (0.2-1.0)
[2017-08-28 07:10] LABS: INR 2.21 (0.82-1.09)
--- NOTE | 2017-08-28 09:36 | PN ---
Progress Note, Physician Chief Complaint: Feels tired History of Present Illness: Admitted fall ,CVA Afib on Coumadin - Current Medication List Current Medications: Active Medications Acetaminophen (Tylenol -) 650 mg PO Q8H PRN PRN Reason: FEVER OR PAIN Atorvastatin Calcium (Lipitor -) 10 mg PO HS [facility] Last Admin: 08/27/17 21:13 Dose: 10 mg Dextrose/Sodium Chloride (D5-1/2ns -) 1,000 mls @ 80 mls/hr IV ASDIR [facility] Last Admin: 08/27/17 21:13 Dose: 80 mls/hr Pantoprazole Sodium (Protonix -) 40 mg PO DAILY [facility] Last Admin: 08/27/17 10:56 Dose: 40 mg Sotalol HCl (Betapace -) 80 mg PO BID [facility] Last Admin: 08/27/17 21:12 Dose: 80 mg Warfarin Sodium (Coumadin -) 2 mg PO DAILY@1800 [facility] Last Admin: 08/27/17 17:55 Dose: 2 mg - Objective Vital Signs: Vital Signs Temperature 97.8 F 08/28/17 06:16 Pulse Rate 80 08/28/17 06:16 Respiratory Rate 20 08/28/17 06:16 Blood Pressure 90/51 08/28/17 06:16 O2 Sat by Pulse Oximetry (%) 94 L 08/27/17 20:12 Constitutional: Yes: No Distress Eyes: Yes: WNL HENT: Yes: WNL Neck: Yes: WNL Cardiovascular: Yes: Pulse Irregular Respiratory: Yes: WNL Gastrointestinal: Yes: WNL ...Rectal Exam: Yes: Deferred Genitourinary: Yes: WNL Musculoskeletal: Yes: WNL Peripheral Pulses WNL: Yes Neurological: Yes: Alert Labs: CBC, BMP 08/28/17 06:25 08/28/17 06:25 INR, PTT INR 2.21 (0.82-1.09) H 08/28/17 06:25 Assessment/Plan Hb 7.8,will discuss with cardiology regarding blood transfusion
[2017-08-28] MEDS: SOTALOL HCL 80 MG TABLET (FP) PO SCH ×3 (10:01→21:16)
[2017-08-28] MEDS: PANTOPRAZOLE 40 MG TABLET (FP) PO SCH (10:01)
--- NOTE | 2017-08-28 10:13 | PN ---
Progress Note (short form) - Note Progress Note: 82 year old male known case of hypertension, history of TIA, hypercholesterolemia and reoccurring sudden onset transient syncope, history of paroxysmal atrial fibrillation admitted with syncope and associated with abrasions, laceration and a large hematoma involving the right thigh. Patient had reoccurrence of Atrial fibrillation which has converted to sinus rhythm. No history of lightheadedness, dizziness, presyncope or syncope. Patient currently is on IV fluids. Active Medications Generic Name Dose Route Start Last Admin Trade Name Freq PRN Reason Stop Dose Admin Acetaminophen 650 mg 08/24/17 23:57 Tylenol - PO Q8H PRN FEVER OR PAIN Atorvastatin Calcium 10 mg 08/25/17 22:00 08/27/17 21:13 Lipitor - PO 10 mg HS [facility] Administration Dextrose/Sodium Chloride 1,000 mls @ 80 mls/hr 08/27/17 10:45 08/27/17 21:13 D5-1/2ns - IV 80 mls/hr ASDIR [facility] Administration Pantoprazole Sodium 40 mg 08/25/17 10:00 08/28/17 10:01 Protonix - PO 40 mg DAILY [facility] Administration Sotalol HCl 80 mg 08/25/17 01:00 08/28/17 10:01 Betapace - PO 80 mg BID [facility] Administration Warfarin Sodium 2 mg 08/26/17 18:00 08/27/17 17:55 Coumadin - PO 2 mg DAILY@1800 [facility] Administration 82 old male in no acute distress, no pallor, cyanosis, clubbing or jaundice. Last Vital Signs Temp Pulse Resp BP Pulse Ox 97.8 F 80 20 90/51 94 L 08/28/17 06:16 08/28/17 06:16 08/28/17 06:16 08/28/17 06:16 08/27/17 20:12 NECK: Supple, no JVD, carotids RT.2+, LT. 1+ RT carotid 2+, right bruit. HEART: irregular S1 variable S2 normal, no murmur heard, no gallops. LUNGS: Clear. ABDOMEN: Soft, nontender, no organomegaly or palpable masses EXTREMITIES: No calf tenderness, right thigh hematoma is soft and there is no tenderness. CBC, BMP 08/28/17 06:25 08/28/17 06:25 A: 1. Paroxysmal atrial fib. with rapid ventricular response. 2. Recurring syncope, etiology to be determined: a). Postural hypotension. b). Arrthymias. c). Cerebrovascular event. 3. Hypertension. 4. Progressive Anemia related to traumatic acute blood loss. RECOMMENDATIOS: 1. Add 40 mg of Sotalol in the middle of the day as patient had breakthrough of Atrial fibrillation while on Sotalol. 2. F/u CBC and BMP. 3. Patient should be considered for packed cells, as there is progressive drop in hematocrit. 4. Follow up CBC.
[2017-08-28] MEDS: DEXTROSE 5%-0.45% SALINE 1,000 ML IV SCH (11:40)
[2017-08-28] MEDS: WARFARIN NA 2 MG TABLET (UD) PO SCH (17:21)
[2017-08-28] MEDS: ATORVASTATIN CA 10 MG TABLET (FP) PO SCH (21:14)
[2017-08-29] MEDS: SOTALOL HCL 80 MG TABLET (FP) PO SCH ×3 (06:13→21:45)
[2017-08-29 07:22] LABS: BASOPHIL 0.7 % (0-2.0); EOSINOPHIL 3.3 % (0-4.5); MCH 27.2 pg (25.7-33.7); MCHC 33.3 g/dl (32.0-35.9); MEAN CELL VOLUME 81.7 fl (80-96); MEAN PLT VOLUME 10.5 fl (7.5-11.1); NEUTROPHILS 65.1 % (42.8-82.8); PLATELET COUNT 174 K/MM3 (134-434); RDW 16.1 % (11.9-15.9); WHITE BLOOD COUNT 7.9 K/mm3 (4.0-10.0)
--- NOTE | 2017-08-29 08:53 | PN ---
Progress Note, Physician Chief Complaint: Feels improved after transfusion History of Present Illness: 82 yrs old man Proxysmal Afib present with recurrent syncope, supratherapeutic INR and Thigh hematoma with drop in H/H MRI Marek Rt Parietal lobe infarct , Carotid Doppler Moderate RT Carotid stenosis. - Current Medication List Current Medications: Active Medications Acetaminophen (Tylenol -) 650 mg PO Q8H PRN PRN Reason: FEVER OR PAIN Atorvastatin Calcium (Lipitor -) 10 mg PO HS [facility] Last Admin: 08/28/17 21:14 Dose: 10 mg Dextrose/Sodium Chloride (D5-1/2ns -) 1,000 mls @ 80 mls/hr IV ASDIR [facility] Last Admin: 08/28/17 11:40 Dose: 80 mls/hr Pantoprazole Sodium (Protonix -) 40 mg PO DAILY [facility] Last Admin: 08/28/17 10:01 Dose: 40 mg Sotalol HCl (Betapace -) 80 mg PO BID@0600,2200 [facility] Last Admin: 08/29/17 06:13 Dose: 80 mg Sotalol HCl (Betapace -) 40 mg PO DAILY@1400 [facility] Last Admin: 08/28/17 14:36 Dose: 40 mg Warfarin Sodium (Coumadin -) 2 mg PO DAILY@1800 [facility] Last Admin: 08/28/17 17:21 Dose: 2 mg - Objective Vital Signs: Vital Signs Temperature 98.4 F 08/29/17 06:00 Pulse Rate 72 08/29/17 06:00 Respiratory Rate 20 08/29/17 06:00 Blood Pressure 124/75 08/29/17 06:00 O2 Sat by Pulse Oximetry (%) 98 08/28/17 21:00 Elderly M not in distress, feels better HEENT: drying scabs on Rt ForeheadMM Moist, mild anemia, no Icterus NECK: JVD +, no Bruit, Thyroid Central CHEST: CTA B/L CVS: S1S2 R no ABD: No distention non tender Bs +mild tenderness, Bs + EXT:Rt thigh echymoses at medial aspect, No feet, no calf tenderness 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 Code(s): I48.0 - PAROXYSMAL ATRIAL FIBRILLATION (2) Syncope Code(s): R55 - SYNCOPE AND COLLAPSE (3) CVA (cerebral vascular accident) Assessment/Plan: No focal deficit on AC and rate controlled afib cont Statin Code(s): I63.9 - CEREBRAL INFARCTION, UNSPECIFIED (4) Anemia due to acute blood loss Assessment/Plan: Improved after transfusion hematoma stable F/U H/H will add Iron Code(s): D62 - ACUTE POSTHEMORRHAGIC ANEMIA (5) Thigh hematoma Assessment/Plan: Not expanding close obervation Code(s): S70.10XA - CONTUSION OF UNSPECIFIED THIGH, INITIAL ENCOUNTER
[2017-08-29] MEDS ORDERED: WARFARIN NA 3 MG TABLET PO SCH (09:52)
[2017-08-29] MEDS: PANTOPRAZOLE 40 MG TABLET (FP) PO SCH (09:55)
[2017-08-29 12:16] LABS: INR 2.93 (0.82-1.09); PROTHROMBIN TIME (PATIENT) 33.1 SEC (9.98-11.88)
[2017-08-29] MEDS: ATORVASTATIN CA 10 MG TABLET (FP) PO SCH (21:45)
[2017-08-30] MEDS: SOTALOL HCL 80 MG TABLET (FP) PO SCH ×3 (06:04→22:04)
[2017-08-30 06:57] LABS: EOSINOPHIL 3.2 % (0-4.5); MCH 27.1 pg (25.7-33.7); MCHC 33.3 g/dl (32.0-35.9); MEAN CELL VOLUME 81.3 fl (80-96); NEUTROPHILS 62.9 % (42.8-82.8); PLATELET COUNT 204 K/MM3 (134-434); RDW 16.5 % (11.9-15.9); WHITE BLOOD COUNT 7.5 K/mm3 (4.0-10.0)
[2017-08-30 07:04] LABS: INR 2.73 (0.82-1.09); PROTHROMBIN TIME (PATIENT) 30.9 SEC (9.98-11.88)
[2017-08-30 07:19] LABS: ALBUMIN 2.8 g/dl (3.4-5.0); ANION GAP 7 (8-16); CALCIUM 7.6 mg/dL (8.5-10.1); CO2 25 mmol/L (21-32); CREATININE 0.7 mg/dL (0.7-1.3); GLUCOSE,RANDOM 86 mg/dL (74-106); SGOT/AST 20 U/L (15-37); SGPT/ALT 26 U/L (12-78)
[2017-08-30 07:21] LABS: ALK PHOS 69 U/L (45-117); BILIRUBIN,TOTAL 1.8 mg/dL (0.2-1.0); TOT PROT 5.5 g/dl (6.4-8.2)
[2017-08-30] MEDS: PANTOPRAZOLE 40 MG TABLET (FP) PO SCH (10:27)
--- NOTE | 2017-08-30 11:30 | PN ---
Progress Note, Physician Chief Complaint: No new complaints, Feels improved after transfusion History of Present Illness: 82 yrs old man Paroxysmal Afib present with recurrent syncope, supra- therapeutic INR and Rt Thigh hematoma with drop in H/H MRI Brain Rt Parietal lobe infarct , Carotid Doppler Moderate RT Carotid stenosis. - Current Medication List Current Medications: Active Medications Acetaminophen (Tylenol -) 650 mg PO Q8H PRN PRN Reason: FEVER OR PAIN Atorvastatin Calcium (Lipitor -) 10 mg PO HS [facility] Last Admin: 08/29/17 21:45 Dose: 10 mg Pantoprazole Sodium (Protonix -) 40 mg PO DAILY [facility] Last Admin: 08/30/17 10:27 Dose: 40 mg Sotalol HCl (Betapace -) 80 mg PO BID@0600,2200 [facility] Last Admin: 08/30/17 06:04 Dose: 80 mg Sotalol HCl (Betapace -) 40 mg PO DAILY@1400 [facility] Last Admin: 08/29/17 14:35 Dose: 40 mg Warfarin Sodium (Coumadin -) 1.5 mg PO DAILY@1800 [facility] - Objective Vital Signs: Vital Signs Temperature 98 F 08/30/17 10:28 Pulse Rate 64 08/30/17 10:28 Respiratory Rate 18 08/30/17 10:28 Blood Pressure 108/60 08/30/17 10:28 O2 Sat by Pulse Oximetry (%) 97 08/29/17 21:00 Elderly M not in distress, feels better HEENT: drying scabs on Rt Fore head, MM Moist, mild anemia, no Icterus NECK: JVD +, no Bruit, Thyroid Central CHEST: CTA B/L CVS: S1S2 R no ABD: No distention non tender Bs +mild tenderness, Bs + EXT:Rt thigh echymoses at medial aspect, No feet, no calf tenderness 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 focal Labs: CBC, BMP 08/30/17 05:05 08/30/17 05:05 INR, PTT INR 2.73 (0.82-1.09) H 08/30/17 05:05 Problem List - Problems (1) Paroxysmal A-fib Assessment/Plan: Now in NSR on Sotalol INR 2.7 yesterday missed Coumadin due to high INR today rasure Coumadin 1 mg bed time F/u INR in am Code(s): I48.0 - PAROXYSMAL ATRIAL FIBRILLATION (2) Syncope Code(s): R55 - SYNCOPE AND COLLAPSE (3) CVA (cerebral vascular accident) Assessment/Plan: No focal deficit on AC and rate controlled afib cont Statin Code(s): I63.9 - CEREBRAL INFARCTION, UNSPECIFIED (4) Anemia due to acute blood loss Assessment/Plan: Improved after transfusion hematoma stable F/U H/H will add Iron Code(s): D62 - ACUTE POSTHEMORRHAGIC ANEMIA (5) Thigh hematoma Assessment/Plan: Not expanding close obervation Code(s): S70.10XA - CONTUSION OF UNSPECIFIED THIGH, INITIAL ENCOUNTER
[2017-08-30] MEDS ORDERED: WARFARIN NA 1 MG TABLET (FP) PO SCH (11:32)
--- NOTE | 2017-08-30 13:13 | PN ---
Progress Note (short form) - Note Progress Note: 82 year old male known case of hypertension, history of TIA, hypercholesterolemia and reoccurring sudden onset transient syncope, history of paroxysmal atrial fibrillation admitted with syncope and associated with abrasions, laceration and a large hematoma involving the right thigh. Patient had reoccurrence of Atrial fibrillation which has converted to sinus rhythm. No history of lightheadedness, dizziness, presyncope or syncope. Patient currently is on IV fluids. Active Medications Generic Name Dose Route Start Last Admin Trade Name Freq PRN Reason Stop Dose Admin Acetaminophen 650 mg 08/24/17 23:57 Tylenol - PO Q8H PRN FEVER OR PAIN Atorvastatin Calcium 10 mg 08/25/17 22:00 08/27/17 21:13 Lipitor - PO 10 mg HS [facility] Administration Dextrose/Sodium Chloride 1,000 mls @ 80 mls/hr 08/27/17 10:45 08/27/17 21:13 D5-1/2ns - IV 80 mls/hr ASDIR [facility] Administration Pantoprazole Sodium 40 mg 08/25/17 10:00 08/28/17 10:01 Protonix - PO 40 mg DAILY [facility] Administration Sotalol HCl 80 mg 08/25/17 01:00 08/28/17 10:01 Betapace - PO 80 mg BID [facility] Administration Warfarin Sodium 2 mg 08/26/17 18:00 08/27/17 17:55 Coumadin - PO 2 mg DAILY@1800 [facility] Administration 82 old male, known case of recurring syncope, hypertension, H/O of lacerations, cotusions and large traumatic right thigh traumatic hematoma requiring blood tranfusion. Feels better, no postural lightheadedness or dizziness.Ambulated in the room without symptoms. No sustained atrial fib since increasing the dose of sotalol. Active Medications Acetaminophen (Tylenol -) 650 mg PO Q8H PRN PRN Reason: FEVER OR PAIN Atorvastatin Calcium (Lipitor -) 10 mg PO HS [facility] Last Admin: 08/29/17 21:45 Dose: 10 mg Pantoprazole Sodium (Protonix -) 40 mg PO DAILY [facility] Last Admin: 08/30/17 10:27 Dose: 40 mg Sotalol HCl (Betapace -) 80 mg PO BID@0600,2200 [facility] Last Admin: 08/30/17 06:04 Dose: 80 mg Sotalol HCl (Betapace -) 40 mg PO DAILY@1400 [facility] Last Admin: 08/29/17 14:35 Dose: 40 mg Warfarin Sodium (Coumadin -) 1 mg PO DAILY@1800 [facility] 82 year male in no distress, mild pallor,no cyanosis, clubbing or jaundice. NECK: Supple, no JVD, carotids RT.2+, LT. 1+ RT carotid 2+, right bruit. HEART: irregular S1 variable S2 normal, no murmur heard, no gallops. LUNGS: Clear. ABDOMEN: Soft, nontender, no organomegaly or palpable masses. EXTREMITIES: No calf tenderness, right thigh hematoma is soft and there is no tenderness. 82 year old male in no distress, no pallor, cyanosis or jaundice Last Vital Signs Temp Pulse Resp BP Pulse Ox 98 F 64 18 108/60 97 08/30/17 10:28 08/30/17 10:28 08/30/17 10:28 08/30/17 10:28 08/29/17 21:00 A: 1. Paroxysmal atrial fib. with rapid ventricular response. 2. Recurring syncope, etiology: a). Postural hypotension. b). Arrthymias. c). Cerebrovascular event. d). related to atrila fib. with rapid ventricular response. 3. Hypertension. 4. Progressive Anemia related to traumatic acute blood loss. CBC, BMP 08/30/17 05:05 08/30/17 05:05 RECOMMENDATIOS: 1. Increase ambulation with assistance. 2. Should not operate a motor vehicle till cause on sudden LOC is determined. 3. Check BP supine and standing.
[2017-08-30] MEDS: ATORVASTATIN CA 10 MG TABLET (FP) PO SCH (22:04)
[2017-08-31] MEDS: SOTALOL HCL 80 MG TABLET (FP) PO SCH (05:53)
[2017-08-31 06:38] LABS: EOSINOPHIL 3.4 % (0-4.5); MCH 27.1 pg (25.7-33.7); MCHC 32.9 g/dl (32.0-35.9); MEAN CELL VOLUME 82.2 fl (80-96); MEAN PLT VOLUME 10.3 fl (7.5-11.1); NEUTROPHILS 59.4 % (42.8-82.8); PLATELET COUNT 252 K/MM3 (134-434); RDW 17.3 % (11.9-15.9); WHITE BLOOD COUNT 8.1 K/mm3 (4.0-10.0)
[2017-08-31 06:53] LABS: INR 2.16 (0.82-1.09); PROTHROMBIN TIME (PATIENT) 24.4 SEC (9.98-11.88)
[2017-08-31 07:02] LABS: ANION GAP 6 (8-16); CALCIUM 8.1 mg/dL (8.5-10.1); CO2 27 mmol/L (21-32); CREATININE 0.7 mg/dL (0.7-1.3); GLUCOSE,RANDOM 88 mg/dL (74-106)
[2017-08-31 08:03] VITALS: BP 124/70; PULSE 62; TEMP 98
[2017-08-31] MEDS: PANTOPRAZOLE 40 MG TABLET (FP) PO SCH (09:29)
--- NOTE | 2017-08-31 09:31 | DS ---
Physical Examination Vital Signs: Vital Signs Temperature 98.0 F 08/31/17 08:01 Pulse Rate 62 08/31/17 08:01 Respiratory Rate 18 08/31/17 08:01 Blood Pressure 124/70 08/31/17 08:01 O2 Sat by Pulse Oximetry (%) 98 08/31/17 07:59 Findings/Remarks: Admitted with syncope and fall Diagnosed to have CVA ,hematoma Rt thigh ,anemia and hypotention Constitutional: Yes: No Distress Eyes: Yes: WNL HENT: Yes: WNL Neck: Yes: Supple Cardiovascular: Yes: WNL, Pulse Irregular Respiratory: Yes: WNL Gastrointestinal: Yes: Normal Bowel Sounds Musculoskeletal: Yes: WNL Extremities: Yes: WNL Edema: No Labs: CBC, BMP 08/31/17 06:20 08/31/17 06:20 Discharge Summary Reason For Visit: TRAUMATIC INJURY OF HEAD, SYNCOPE Current Active Problems Anemia due to acute blood loss (Acute) CVA (cerebral vascular accident) (Acute) Head injury due to trauma (Acute) Paroxysmal A-fib (Acute) Supratherapeutic INR (Acute) Syncope (Acute) Syncope (Acute) Thigh hematoma (Acute) Condition: Guarded - Instructions Referrals: Miller Sepulveda MD [Primary Care Provider] - - Home Medications Comprehensive Discharge Medication List: Ambulatory Orders Lansoprazole [Prevacid] 40 mg PO HS 08/23/17 Ramipril [Altace] 5 mg PO DAILY 08/23/17 Sotalol HCl [Sotalol] 80 mg PO BID 08/23/17 Warfarin Sodium [Coumadin] 2.5 mg PO HS 08/23/17 Aspirin [Children's Aspirin] 81 mg PO DAILY 08/24/17 Multivit-Min/FA/Lycopen/Lutein [Centrum Silver Tablet] 1 each PO DAILY 08/24/17 Pravastatin Sodium [Pravachol (Nf)] 40 mg PO HS 08/24/17
--- NOTE | 2017-08-31 09:46 | PN ---
Progress Note (short form) - Note Progress Note: 82 year old male known case of hypertension, history of TIA, hypercholesterolemia and reoccurring sudden onset transient syncope, history of paroxysmal atrial fibrillation admitted with syncope and associated with abrasions, laceration and a large hematoma involving the right thigh. Patient had reoccurrence of Atrial fibrillation which has converted to sinus rhythm. No history of lightheadedness, dizziness, presyncope or syncope. Patient currently is on IV fluids. Active Medications Acetaminophen (Tylenol -) 650 mg PO Q8H PRN PRN Reason: FEVER OR PAIN Atorvastatin Calcium (Lipitor -) 10 mg PO HS [facility] Last Admin: 08/30/17 22:04 Dose: 10 mg Pantoprazole Sodium (Protonix -) 40 mg PO DAILY [facility] Last Admin: 08/31/17 09:29 Dose: 40 mg Sotalol HCl (Betapace -) 80 mg PO BID@0600,2200 [facility] Last Admin: 08/31/17 05:53 Dose: 80 mg Sotalol HCl (Betapace -) 40 mg PO DAILY@1400 [facility] Last Admin: 08/30/17 14:16 Dose: 40 mg Warfarin Sodium (Coumadin -) 1 mg PO DAILY@1800 [facility] Last Admin: 08/30/17 18:44 Dose: 1 mg 82 old male, known case of recurring syncope, hypertension, H/O of lacerations, cotusions and large traumatic right thigh traumatic hematoma requiring blood tranfusion. Feels better, no postural lightheadedness or dizziness.Ambulated in the room without symptoms. Remains in sinus rhythm. 82 year male in no distress, mild pallor,no cyanosis, clubbing or jaundice. Last Vital Signs Temp Pulse Resp BP Pulse Ox 98.0 F 62 18 124/70 98 08/31/17 08:01 08/31/17 08:01 08/31/17 08:01 08/31/17 08:01 08/31/17 07:59 NECK: Supple, no JVD, carotids RT.2+, LT. 1+ RT carotid 2+, right bruit. HEART: irregular S1 variable S2 normal, no murmur heard, no gallops. LUNGS: Clear. ABDOMEN: Soft, nontender, no organomegaly or palpable masses. EXTREMITIES: No calf tenderness, right thigh hematoma is soft and there is no tenderness. 82 year old male in no distress, no pallor, cyanosis or jaundice A: 1. Paroxysmal atrial fib. with rapid ventricular response. 2. Recurring syncope, etiology: a). Postural hypotension. b). Arrthymias. c). Cerebrovascular event. d). related to atrila fib. with rapid ventricular response. 3. Hypertension. 4. Progressive Anemia related to traumatic acute blood loss. 5. H/o CVA. CBC, BMP 08/31/17 06:20 08/31/17 06:20 RECOMMENDATIOS: 1. Increase ambulation with assistance. 2. Should not operate a motor vehicle till cause on sudden LOC is determined. 3. Hb. and HCT are stable. 4. As discussed will need further workup to determine the initial cause of syncope.
== END 2017-08-31 11:58 | disposition home or self-care (01) | DRG 65 ==
LOC: JER 18:50 → JERBED 23:45 → J7W 08-25 12:39 → J4W 08-26 15:41
PROVIDERS: ADMIT Internal Medicine; ATTEND Internal Medicine
PROC: 30233N1 Transfusion of Nonautologous Red Blood Cells into Peripheral Vein, Percutaneous Approach (ICD-10-PCS; principal; 2017-08-28)
DX: I63.231 Cerebral infarction due to unspecified occlusion or stenosis of right carotid arteries (principal); D62 Acute posthemorrhagic anemia; R79.1 Abnormal coagulation profile; I48.0 Paroxysmal atrial fibrillation; I10 Essential (primary) hypertension; I95.1 Orthostatic hypotension; S09.90XA Unspecified injury of head, initial encounter; W19.XXXA Unspecified fall, initial encounter; Y93.9 Activity, unspecified; Y92.89 Other specified places as the place of occurrence of the external cause; Y99.9 Unspecified external cause status; R60.9 Edema, unspecified; E78.00 Pure hypercholesterolemia, unspecified; S80.11XA Contusion of right lower leg, initial encounter
CPT/HCPCS: 36415; 36430; 36511; 70450-TC; 70486-TC; 70496-TC; 70551-TC; 71250-TC; 73523-TC; 73552-TC-RT; 76882; 80048; 80053; 80162; 82550; 83735; 83880; 84443; 84484; 85025; 85027; 85610; 85730; 86850; 86900; 86901; 86922; 93005; 93010; 93225; 93226; 93880-TC; 97116-GP; 97161-GP; 99285-25; P9038; P9058